=== PATIENT | female | born 2000 | race Two or more races ===

== ENCOUNTER 2025-07-22 15:26 | Emergency (ER) | payer MEDICAID, SELFPAY ==
[2025-07-22 15:44] VITALS: BP 123/85; PULSE 77; RESP 16; TEMP 37.2; O2SAT 99; BMI 26.2
--- NOTE | 2025-07-22 15:48 | EDNOTE_ITS ---
<Statement entered by Katharina Godoy MD - 08/10/25 06:05> As co-signing physician, I was present and available for consult prn. I concur with the plan and care as documented by the midlevel provider. ED Neck Injury Pain RME/HPI General Chief Complaint: Neck Pain/Injury Stated Complaint: RIGHT SIDED NECK SWELLING/PAIN Time Seen by Provider: 07/22/25 15:48 Arrival date/time: 07/22/25 15:26 25-year-old female with no significant medical problems presents to the emergency department today for complaints of a 2-day history of right ear pain and right send mandibular swelling and pain patient reports no fever nausea or vomiting Limitations: no limitations Related Data Previous Rx's ?Medication ?Instructions ?Recorded amoxicillin 875 mg-potassium 1 tab PO BID 10 days #20 tabs 07/22/25 clavulanate 125 mg tablet ibuprofen 600 mg tablet 600 mg PO Q6H #30 tabs 07/22 prednisone 20 mg tablet 20 mg PO BID 3 days #6 tabs 07/22/25 Allergies Allergy/AdvReac Type Severity Reaction Status Date / Time No Known Allergies Allergy Verified 07/22/25 15:28 Review of Systems Review of Systems Systems Reviewed: All systems reviewed, normal except as documented Constitutional Constitutional: Reports system reviewed and no additional complaints, except as documented, Denies fever(s) and Denies headache(s) Eyes Eyes: Reports system reviewed and no additional complaints, except as documented and Denies blurry vision ENT Ears, Nose, Mouth, and Throat: Reports system reviewed and no additional complaints, except as documented, Reports otalgia, Denies headache(s), Denies nasal congestion, Denies nasal discharge, Reports neck mass and Reports neck pain Cardiovascular Cardiovascular: Reports system reviewed and no additional complaints, except as documented, Denies chest pain and Denies dyspnea Respiratory Respiratory: Reports system reviewed and no additional complaints, except as documented, Denies chest congestion, Denies cough and Denies dyspnea Gastrointestinal Gastrointestinal: Reports system reviewed and no additional complaints, except as documented and Denies abdominal pain Musculoskeletal Musculoskeletal: Reports neck pain Integumentary/Breasts Skin/Breast: Reports system reviewed and no additional complaints, except as documented and Denies rash Neurologic Neurologic: Reports system reviewed and no additional complaints, except as documented, Reports as per HPI and Denies headache(s) Past Medical History Social History SMOKING STATUS: Never smoker ED Exam General Limitations: Present no limitations General appearance: Present alert and in no apparent distress Head Head exam: Present atraumatic, normocephalic and normal inspection Eye Eye exam: Present normal appearance, PERRL and EOMI; Absent conjunctival injection ENT ENT exam: Present normal exam, normal oropharynx and mucous membranes moist Neck Neck exam: Present normal inspection, full ROM and trachea midline Expanded Neck Exam Neck image: 2 1. Mild submandibular swelling lymphadenopathy Chest Chest inspection: Present normal inspection and symmetric chest wall rise Respiratory Respiratory exam: Present normal lung sounds bilaterally Cardiovascular Cardiovascular exam: Present regular rate, normal rhythm and normal heart sounds Abdominal Exam Abdominal exam: Present soft and normal bowel sounds Extremities Exam Extremities exam: Present normal inspection and full ROM Back Exam Back exam: Present normal inspection and full ROM Neurological Exam Neurological exam: Present alert, oriented X3, CN II-XII intact, normal gait and reflexes normal; Absent motor sensory deficit Psychiatric Psychiatric exam: Present normal affect and normal mood Skin Skin exam: Present warm, dry, intact and normal color Course Quality Measures none Orders Category Date Time Status Ibuprofen Tab [Motrin Tab] Med 07/22/25 15:48 Discontinued 600 mg PO X1 ONE Lidocaine 1% 20 ml [Xylocaine 1% 20 ML] Med 07/22/25 15:48 Discontinued 2.1 ml INFL X1 ONE cefTRIAXone [Rocephin] Med 07/22/25 15:48 Discontinued 1,000 mg IM X1 ONE Vital Signs Vital signs: Vital Signs Temperature 98.9 F 07/22/25 15:44 Pulse Rate 77 07/22/25 15:44 Respiratory Rate 16 07/22/25 15:44 Blood Pressure 123/85 H 07/22/25 15:44 Pulse Oximetry (%) 99 07/22/25 15:44 Oxygen Delivery Method Room Air 07/22/25 15:44 O2 saturation 99% room air within normal limits Neck Pain MDM Narrative MDM Narrative:: 25-year-old female with no significant medical problems presents to the emergency department today for complaints of a 2-day history of right ear pain and right send mandibular swelling and pain patient reports no fever nausea or vomiting On exam patient well-appearing patient does not appear toxic Differentials include not limited to lymphadenopathy, sialoadenitis, malignancy, otitis media At this time patient patient with course of antibiotics and pain medication Explained to the patient after the course of antibiotics if her symptoms persist or worsen she will need to return for CT scan and lab work patient states understanding Patient discharged home in no distress to follow-up with primary care doctor in the next 24 to 48 hours and for any worsening symptoms to return to the ER immediately Patient data External records reviewed:: [facility] previous records Clinical information provided by:: patient Social determinants that could affect healthcare access:: none Patient has the following chronic illnesses:: None How is presenting disease/condition affected by chronic disease/condition?: no chronic disease Evaluation data The following diagnostics were reviewed and interpreted by me:: other (specify) Lab and/or radiology exams considered but not ordered:: Considered not indicated Interpretation Summary: N/A Medications / Prescriptions Medications or Prescriptions considered but not ordered:: Given Medication administrations:: Medication Administration History Discontinued Medications Ceftriaxone Sodium (Ceftriaxone Sod Inj 1,000 Mg Vial) 1,000 mg IM X1 ONE Stop: 07/22/25 15:49 Last Admin: 07/22/25 15:59 Dose: 1,000 mg Documented By: INDER Ibuprofen (Ibuprofen Tab 600 Mg Tablet) 600 mg PO X1 ONE Stop: 07/22/25 15:49 Last Admin: 07/22/25 15:59 Dose: 600 mg Documented By: INDER Lidocaine HCl (Lidocaine Hcl 1% 20 Ml Vial) 2.1 ml INFL X1 ONE Stop: 07/22/25 15:49 Last Admin: 07/22/25 15:59 Dose: 2.1 ml Documented By: INDER Given Consultations Consultation(s) initiated? (list below): No Diagnosis Neck Differential Diagnosis: other (Otitis media, otitis externa, sialadenitis, malignancy) Most likely diagnosis given after review of the tests above:: Sialadenitis Admission Indicated Admission indicated?: not indicated Admission Request Was there a request for admission?: No Disposition Plan Disposition Plan: Discharge Discharge Attestation Discharge Attestation: The patient and all family members were given an opportunity to ask questions and understood the discharge instructions. Discharge instructions specifically effects, indications for sooner follow up or return to the emergency department, and the expected course of current diagnosis. Patient condition: Stable Discharge Plan Plan Patient Disposition: HOME (Self Care) Discharge Disposition comment: Stable Prescriptions/Referrals Prescriptions/Med Rec: New prednisone 20 mg tablet 20 mg PO BID 3 Days Qty: 6 0RF ibuprofen 600 mg tablet 600 mg PO Q6H Qty: 30 0RF amoxicillin-pot clavulanate 875-125 mg tablet 1 tab PO BID 10 Days Qty: 20 0RF Problem List Clinical Impression: Lymphadenopathy, Neck pain Patient/Caregiver Discharge Instructions Education Materials: ED Neck Pain Additional Instructions: Please follow up with your primary care doctor in the next 24-48hrs for any worsening symptoms return here immediately If after antibiotic treatment you still have swelling please return for reevaluation and possible advanced imaging Print Language: Ivorian Stand Alone Forms: Denisa Award Info., Work/School Release, Patient Portal Info Letter PA/SERVICING REP Supervising Physician PA/SERVICING REP Supervising Physician: Dr. Godoy
[2025-07-22] MEDS: IBUPROFEN TAB 600 MG TABLET PO (15:59)
[2025-07-22] MEDS: cefTRIAXone SOD INJ 1,000 MG VIAL 1000 MG IM (15:59)
[2025-07-22] MEDS: LIDOCAINE HCL 1% 20 ML VIAL 2.1 ML INFL (15:59)
== END 2025-07-22 16:04 | disposition home or self-care (01) ==
LOC: SERX 16:08
PROVIDERS: Emergency Provider Emergency Medicine; PCP Nurse Practitioner Family
DX: R59.1 Generalized enlarged lymph nodes (principal); M54.2 Cervicalgia
CPT/HCPCS: 96372; 99283; J0696; J3490; A9270

== ENCOUNTER 2025-07-27 09:09 | Emergency (ER) | payer MEDICAID, SELFPAY ==
[2025-07-27 09:09] VITALS: BMI 26.2
[2025-07-27 09:26] VITALS: BP 129/85; PULSE 100; RESP 18; TEMP 37.2; O2SAT 100
--- NOTE | 2025-07-27 09:35 | XR_ITS ---
Examination: CT middle inner ear, without contrast. 2-D coronal reconstructions. 2-D sagittal reconstructions. Date and time of exam: July 27, 2025 1309 hours INDICATIONS: Bilateral ear tenderness today CTDI: vol (mGy): 16.8 DLP: (mGycm):137 Technique: Multiple 1.0 mm axial sections of the middle inner ears bilaterally. High-resolution 64 slice scanner utilized. 2-D coronal reconstructions 2-D sagittal reconstructions Low dose protocols were performed. One or more of the following dose reduction techniques were used; automated exposure control, adjustment of the mA and/or KV according to patient size, use of iterative reconstruction technique. Findings: Axial sections of the right demonstrate mildly reduced mastoid aeration. Jugular fossa and carotid canal do not appear remarkable. No deformity of the ossicles. Porus acusticus internus does not exhibit erosion. Cochlear apparatus unremarkable. Semicircular canals normal. Right otitis externa Right otitis media Coronal reconstructions demonstrate no erosion of the scutum. Mild fluid in the attic or Prussak's space is seen. Ossicular mass intact. Axial sections of the left demonstrate mildly reduced mastoid aeration. Acute left mastoiditis Jugular fossa and carotid canal do not appear remarkable. No deformity of the ossicles. Porus acusticus internus does not exhibit erosion. Cochlear apparatus unremarkable. Semicircular canals normal. Mild left otitis externa Coronal reconstructions demonstrate no erosion of the scutum. No soft tissue mass in the attic or Prussak's space is seen. Ossicular mass intact. Roof of the mastoid air cells appear intact bilaterally. Impression: Mild bilateral chronic mastoiditis Acute left mastoiditis Bilateral otitis externa Right otitis media
--- NOTE | 2025-07-27 09:36 | PD.EDRME ---
Rapid Medical Screening Exam RME Arrival date/time: 07/27/25 09:09 25-year-old female with no known medical history presents to the emergency room with a chief complaint of right ear tenderness, swelling and drainage x 5 days. Patient was seen here in the emergency room and put on oral antibiotics and her symptoms have not improved. I have greeted and performed a focused initial assessment of this patient. A comprehensive ED assessment and evaluation of the patient, analysis of all test results, and completion of the medical decision making process will be conducted by additional ED providers. Chief Complaint: Ear Time Seen by Provider: 07/27/25 09:11 Vital signs: Vital Signs Temperature 98.9 F 07/27/25 09:26 Pulse Rate 100 07/27/25 09:26 Respiratory Rate 18 07/27/25 09:26 Blood Pressure 129/85 H 07/27/25 09:26 Pulse Oximetry (%) 100 07/27/25 09:26 Oxygen Delivery Method Room Air 07/27/25 09:26 Vital signs reviewed by provider: Yes
[2025-07-27 10:03] LABS: Basophils # (Auto) 0.1 Thou/mm3 (0.0-0.2); Basophils % (Auto) 1 % (0-2.5); Eosinophils # (Auto) 0.3 Thou/mm3 (0.0-0.5); Eosinophils % (Auto) 2 % (0-10); Hematocrit 41.5 % (36.0-46.0); Hemoglobin 13.9 g/dL (12.0-16.0); Immature Granulocytes Auto 0.04 Thou/mm3 (0.00-0.00); Lymphocytes # (Auto) 1.7 Thou/mm3 (1.0-4.8); Lymphocytes % (Auto) 14 % (10-50); Mean Corpuscular HGB Conc 33.5 g/dl (31.0-37.0); Mean Corpuscular Hemoglobin 30.6 pg (25.0-35.0); Mean Corpuscular Volume 91 fL (80-100); Monocytes # (Auto) 1.2 Thou/mm3 (0.0-0.8); Monocytes % (Auto) 10 % (0-12); Neutrophils # (Auto) 8.8 Thou/mm3 (1.8-7.7); Neutrophils % (Auto) 73 % (37-80); Nucleated Red Blood Cell # 0.00 Thou/mm3 (0.00-0.00); Nucleated Red Blood Cell % 0 /100 WBC (0); Platelet Count 264 Thou/mm3 (140-440); RDW Standard Deviation 40.7 fL (36.4-46.3); Red Blood Count 4.54 Miln/mm3 (4.00-5.20); White Blood Count 12.0 Thou/mm3 (3.6-11.0)
[2025-07-27 10:23] LABS: Alanine Aminotransferase 202 U/L (10-49); Albumin, Serum 4.3 gm/dL (3.5-5.0); Albumin/Globulin Ratio 1.3 (1.2-2.2); Alkaline Phosphatase 85 U/L (46-116); Anion Gap 6 (7-16); Aspartate Amino Transferase 161 U/L (0-34); BUN/Creatinine Ratio 13 Ratio (12-20); Bilirubin,Total 1.4 mg/dL (0.3-1.2); Blood Urea Nitrogen 9 mg/dL (9-23); Calcium 9.0 mg/dL (8.3-10.6); Calcium (Corrected) 9.0 mg/dL (8.5-10.1); Carbon Dioxide 26.6 mMol/L (20.0-31.0); Chloride 104 mMol/L (98-107); Creatinine (Component) 0.7 mg/dL (0.6-1.3); Estimated Creatinine Clearance 114.0 mL/min (>60); Globulin 3.2 gm/dL (2.3-3.5); Glucose 85 mg/dL (74-106); Osmolality,Calculated 271 (275-295); Potassium 3.6 mMol/L (3.4-5.1); Sodium 137 mMol/L (136-145); Total Protein 7.5 gm/dL (5.7-8.2); eGFR > 60 See Note
--- NOTE | 2025-07-27 15:53 | PC.NURSE ---
WAS CALLED X 2 AT THIS TIME, NO ANSWER.
== END 2025-07-27 16:05 | disposition left against medical advice (07) ==
PROVIDERS: Nurse Practitioner Family; Emergency Provider Emergency Medicine; PCP Physician Assistant Medical
DX: H93.8X1 Other specified disorders of right ear (principal); Z53.29 Procedure and treatment not carried out because of patient's decision for other reasons
CPT/HCPCS: 36415; 70480; 80053; 85025; 99283